=== PATIENT | female | born 1975 | race Caucasian/White ===

== ENCOUNTER 2018-01-17 18:23 | Emergency (ER) | payer SELFPAY ==
[~2018-01-17] VITALS: Ht 157.5 cm; Wt 56.0 kg
[2018-01-17 18:29] VITALS: BP 115/65
== END 2018-01-17 22:10 | disposition left against medical advice (07) ==
LOC: ER 19:15
DX: Z53.21 Procedure and treatment not carried out due to patient leaving prior to being seen by health care provider (principal)